=== PATIENT | female | born 1935 | race Caucasian/White ===

== ENCOUNTER 2017-02-27 22:53 | Emergency (ER) | payer OTHER, MEDICARE ==
[~2017-02-27] VITALS: Ht 160 cm; Wt 47.2 kg
[~2017-02-27 22:53] MED LIST: ASPI81TA2 PO; CARB1TAB13 PO; FAMO-129 PO; FERR-57 PO; FOLI-43 PO; LIP10 PO; METO25TA6; MULT PO; PRAM0.5T3 PO; RALO60TA PO; SENN1TAB5 PO; SINEMET PO; carbidopa-levodopa
[2017-02-27 22:59] VITALS: PULSE 76; RESP 20; TEMP 98.2; O2SAT 98
--- NOTE | 2017-02-27 22:59 | NUR ---
Patient to ER bed 3 to gown for evaluation. Side rails up. Report given to ELYSE Patiño
--- NOTE | 2017-02-27 23:00 | NUR ---
Patient arrived BLS s/p mechanical fall from shower. Patient states that she fell on her side hitting her right arm and flank. Patient denies any pain at this time. No shortness of breath. No other complaints/injuries per patient or as noted.
--- NOTE | 2017-02-27 23:23 | NUR ---
CAILIN Bueno at bedside.
[2017-02-27 23:53] LABS: BASOPHILS % (AUTO) 0.6 % (0.0-2.0); EOSINOPHILS # (AUTO) 0.3 K/uL (0.0-0.4); HEMATOCRIT 36.3 % (36-48); HEMOGLOBIN 11.9 g/dL (12.0-16.0); LYMPHOCYTES % (AUTO) 16.3 % (20.5-51.5); MEAN CORPUSCULAR HEMOGLOBIN 31 pg (27-31); MEAN CORPUSCULAR HGB CONC 33 % (32-36); MEAN CORPUSCULAR VOLUME 94 fL (79.0-98.0); MONOCYTES # (AUTO) 0.3 K/uL (0.0-1.0); MONOCYTES % (AUTO) 5.3 % (1.7-9.3); NEUTROPHILS # (AUTO) 4.7 K/uL (1.8-7.7); NEUTROPHILS % (AUTO) 73.8 % (40.0-70.0); PLATELET COUNT (AUTO) 201 K/uL (130-430); RED BLOOD CELL COUNT(AUTO) 3.86 MIL/uL (4.2-6.2); RED CELL DISTRIBUTION WIDTH 11.6 % (9.0-15.0); WHITE BLOOD COUNT (AUTO) 6.3 K/uL (4.8-10.8)
[2017-02-27 23:58] LABS: CALCIUM 8.8 mg/dL (8.4-11.0); CHLORIDE 106 mmol/L (98-107); CREATININE 1.05 mg/dL (0.55-1.30); GLUCOSE 102 mg/dL (70-99); POTASSIUM 4.2 mmol/L (3.5-5.1); SODIUM SERUM 138 mmol/L (136-145); UREA NITROGEN, BLOOD 22 mg/dL (8-21)
[2017-02-28] LABS: ANION GAP < 3 (5-15)
[2017-02-28 00:03] LABS: ALANINE AMINOTRANSFERASE 8 U/L (12-78); ALBUMIN 3.9 g/dL (3.4-4.8); ASPARTATE AMINOTRANSFERASE 19 U/L (10-37); CREATINE KINASE, TOTAL 115 U/L (26-192); TOTAL BILIRUBIN 0.3 mg/dL (0.0-1.0); TOTAL PROTEIN, SERUM 6.8 g/dL (6.4-8.3)
[2017-02-28 00:11] LABS: PROTHROMBIN TIME 10.6 SECS (9.5-12.5)
--- NOTE | 2017-02-28 01:27 | NUR ---
Patient to be transferred to [facility]. Patient or responsible libertarian has agreed to transfer and signed form. Patient belongings inventoried and will be sent with patient. Copy of nursing notes, lab reports, EKG, Physicians Orders and X-rays to be sent with patient. Report called to Arlin at receiving facility. [facility] has been called for transfer. ETA is [phone]
--- NOTE | 2017-02-28 01:30 | NUR ---
Note undone in EDM - 02/28/17 at 0300 by [email or web address] Patient given written and verbal discharge instructions and verbalizes understanding. ER discussed with patient the results and treatment provided. Patient in stable condition. ID arm band removed. Rx of Tylenol given. Patient educated on pain management and to follow up with PMD in 2-3 days. Pain Scale 0/10 Opportunity for questions provided and answered.
[2017-02-28] MEDS ORDERED: MORPHINE 4 MG/ML INJ. SYRINGE IVP ONE (01:45)
--- NOTE | 2017-02-28 01:50 | NUR ---
Patient given written and verbal discharge instructions and verbalizes understanding. ER MD discussed with patient the results and treatment provided. Patient in stable condition. ID arm band removed. Rx of Tylenol given. Patient educated on pain management and to follow up with PMD in 2-3 days. Pain Scale 0/10 Opportunity for questions provided and answered.
[2017-02-28 02:01] VITALS: BP 132/86; PULSE 76; RESP 20; TEMP 98.2; O2SAT 98
--- NOTE | 2017-02-28 09:28 | NUR ---
RECEIVED FINAL REPORT RE CHEST XRAYS, SPOKE WITH CAREGIVER MCKENZIE AT [facility], WILL FAX OVER RESULTS TO CHARGE NURSE TEOFILO CABALLERO
== END 2017-02-28 01:50 | disposition home or self-care (01) ==
LOC: SED 22:53
DX: S20.20XA Contusion of thorax, unspecified, initial encounter (principal); I10 Essential (primary) hypertension; Z85.3 Personal history of malignant neoplasm of breast; Z79.899 Other long term (current) drug therapy; W18.2XXA Fall in (into) shower or empty bathtub, initial encounter; Y93.89 Activity, other specified; Y92.091 Bathroom in other non-institutional residence as the place of occurrence of the external cause; Y99.8 Other external cause status
CPT/HCPCS: 36415; 71010; 80053; 82550-TC; 84484; 85025; 85610-TC; 85730-TC; 96372; 99285; J2270

== ENCOUNTER 2017-02-28 10:38 | Emergency (ER) | payer OTHER, MEDICARE ==
[~2017-02-28] VITALS: Ht 167.6 cm; Wt 52.2 kg
[2017-02-28 10:38] VITALS: BP_SYST 128
[2017-02-28 13:15] VITALS: BP_SYST 120
== END 2017-02-28 13:15 | disposition home or self-care (01) ==
LOC: SED 10:38
DX: S22.31XA Fracture of one rib, right side, initial encounter for closed fracture (principal); I10 Essential (primary) hypertension; Z85.3 Personal history of malignant neoplasm of breast; G20 Parkinson's disease; Z79.82 Long term (current) use of aspirin; W18.2XXA Fall in (into) shower or empty bathtub, initial encounter; Y93.89 Activity, other specified; Y92.091 Bathroom in other non-institutional residence as the place of occurrence of the external cause; Y99.9 Unspecified external cause status
CPT/HCPCS: 99283

== ENCOUNTER 2017-03-14 19:40 | Emergency (ER) | payer OTHER, MEDICARE ==
[~2017-03-14] VITALS: Ht 160 cm; Wt 49.9 kg
[2017-03-14 19:40] VITALS: BP 137/60; PULSE 82; RESP 18; TEMP 99.2; O2SAT 96
[2017-03-14] MEDS ORDERED: KETOROLAC TROMETHAMINE 30 MG VIAL IVP ONE (20:45)
[2017-03-14 21:01] LABS: BASOPHILS # (AUTO) 0.1 K/uL (0.0-0.2); BASOPHILS % (AUTO) 1.4 % (0.0-2.0); EOSINOPHILS # (AUTO) 0.3 K/uL (0.0-0.4); EOSINOPHILS % (AUTO) 3.5 % (0.0-4.0); HEMATOCRIT 32.3 % (36-48); HEMOGLOBIN 10.9 g/dL (12.0-16.0); LYMPHOCYTES # (AUTO) 0.9 K/uL (1.0-5.5); LYMPHOCYTES % (AUTO) 11.2 % (20.5-51.5); MEAN CORPUSCULAR HEMOGLOBIN 32 pg (27-31); MEAN CORPUSCULAR HGB CONC 34 % (32-36); MEAN CORPUSCULAR VOLUME 94 fL (79.0-98.0); MONOCYTES # (AUTO) 0.7 K/uL (0.0-1.0); MONOCYTES % (AUTO) 8.9 % (1.7-9.3); NEUTROPHILS # (AUTO) 6.3 K/uL (1.8-7.7); PLATELET COUNT (AUTO) 325 K/uL (130-430); RED BLOOD CELL COUNT(AUTO) 3.45 MIL/uL (4.2-6.2); RED CELL DISTRIBUTION WIDTH 11.7 % (9.0-15.0); WHITE BLOOD COUNT (AUTO) 8.3 K/uL (4.8-10.8)
[2017-03-14 21:02] LABS: ANION GAP 4 (5-15); CALCIUM 8.4 mg/dL (8.4-11.0); CHLORIDE 109 mmol/L (98-107); CREATININE 0.71 mg/dL (0.55-1.30); GLUCOSE 112 mg/dL (70-99); POTASSIUM 3.9 mmol/L (3.5-5.1); SODIUM SERUM 142 mmol/L (136-145); UREA NITROGEN, BLOOD 19 mg/dL (8-21)
[2017-03-14 21:06] LABS: PROTHROMBIN TIME 10.7 SECS (9.5-12.5)
[2017-03-14 21:07] LABS: ALANINE AMINOTRANSFERASE 11 U/L (12-78); ALBUMIN 3.5 g/dL (3.4-4.8); ASPARTATE AMINOTRANSFERASE 21 U/L (10-37); CREATINE KINASE, TOTAL 68 U/L (26-192); TOTAL BILIRUBIN 0.3 mg/dL (0.0-1.0); TOTAL PROTEIN, SERUM 6.5 g/dL (6.4-8.3)
[2017-03-14 23:55] VITALS: BP 127/52; PULSE 80; RESP 18; TEMP 98.9; O2SAT 96
== END 2017-03-14 23:55 | disposition home or self-care (01) ==
LOC: SED 19:40
DX: J18.9 Pneumonia, unspecified organism (principal); I10 Essential (primary) hypertension; Z85.3 Personal history of malignant neoplasm of breast; Z90.11 Acquired absence of right breast and nipple; Z79.899 Other long term (current) drug therapy
CPT/HCPCS: 36415; 71010; 80053; 82550; 83880; 84484; 85025; 85610; 85730; 93005; 96374; 99285; J1885

== ENCOUNTER 2017-03-19 21:03 | Inpatient (IN) | payer OTHER, MEDICARE ==
[~2017-03-19] VITALS: Ht 160 cm; Wt 53.2 kg
[2017-03-19 21:03] VITALS: BP_SYST 155
--- NOTE | 2017-03-19 21:03 | NUR ---
Patient to ER bed 2 to gown for evaluation. Side rails up. Report given to ELYSE Rico.
--- NOTE | 2017-03-19 21:03 | NUR ---
ER Dr. CRAFT at bedside examining patient.
--- NOTE | 2017-03-19 21:10 | NUR ---
PT C/O RT ARM PAIN 04/30, NON-RADIATING, STATES IT STARTED HURTING MORE TODAY. A/OX3, FORGETFULL, AFEBRILE. NO SOB OR DISTRESS, NO N/V/D. SAFETY PRECAUTIONS IN PLACE, WILL CONTINUE TO MONITOR.
[2017-03-19] MEDS ORDERED: KETOROLAC TROMETHAMINE 30 MG VIAL IVP ONE (21:15)
[2017-03-19] MEDS ORDERED: NACL 0.9% 1,000 ML IV ONE (21:15)
[2017-03-19 21:29] LABS: BASOPHILS # (AUTO) 0.1 K/uL (0.0-0.2); BASOPHILS % (AUTO) 1.2 % (0.0-2.0); EOSINOPHILS # (AUTO) 0.5 K/uL (0.0-0.4); EOSINOPHILS % (AUTO) 9.4 % (0.0-4.0); HEMATOCRIT 36.6 % (36-48); HEMOGLOBIN 12.2 g/dL (12.0-16.0); LYMPHOCYTES % (AUTO) 18.5 % (20.5-51.5); MEAN CORPUSCULAR HEMOGLOBIN 31 pg (27-31); MEAN CORPUSCULAR HGB CONC 33 % (32-36); MEAN CORPUSCULAR VOLUME 94 fL (79.0-98.0); MONOCYTES # (AUTO) 0.5 K/uL (0.0-1.0); MONOCYTES % (AUTO) 9.5 % (1.7-9.3); NEUTROPHILS # (AUTO) 3.4 K/uL (1.8-7.7); NEUTROPHILS % (AUTO) 61.4 % (40.0-70.0); PLATELET COUNT (AUTO) 383 K/uL (130-430); RED BLOOD CELL COUNT(AUTO) 3.92 MIL/uL (4.2-6.2); RED CELL DISTRIBUTION WIDTH 11.8 % (9.0-15.0); WHITE BLOOD COUNT (AUTO) 5.5 K/uL (4.8-10.8)
[2017-03-19 21:37] LABS: ANION GAP 7 (5-15); CALCIUM 9.1 mg/dL (8.4-11.0); CHLORIDE 104 mmol/L (98-107); CREATININE 0.84 mg/dL (0.55-1.30); GLUCOSE 107 mg/dL (70-99); POTASSIUM 4.2 mmol/L (3.5-5.1); SODIUM SERUM 140 mmol/L (136-145); UREA NITROGEN, BLOOD 24 mg/dL (8-21)
[2017-03-19 21:41] LABS: PROTHROMBIN TIME 10.5 SECS (9.5-12.5)
[2017-03-19 21:42] LABS: ALANINE AMINOTRANSFERASE 13 U/L (12-78); ALBUMIN 4.2 g/dL (3.4-4.8); ASPARTATE AMINOTRANSFERASE 32 U/L (10-37); TOTAL BILIRUBIN 0.3 mg/dL (0.0-1.0); TOTAL PROTEIN, SERUM 7.9 g/dL (6.4-8.3)
[2017-03-19] MEDS ORDERED: PIPERACILLIN/TAZO 3.375 GM in NS 50 ML IV ONE (21:45)
[2017-03-19] MEDS ORDERED: METO25TA3 PO (21:46)
[2017-03-19] MEDS ORDERED: DOCU-144 PO (21:46)
[2017-03-19] MEDS ORDERED: FLUT60LO3 TP (21:46)
[2017-03-19] MEDS ORDERED: NAPR220C15 PO (21:46)
[2017-03-19] MEDS ORDERED: ACET325T53 PO (21:46)
[2017-03-19] MEDS ORDERED: CARB-61 PO (21:46)
[2017-03-19 22:22] LABS: BILIRUBIN,URINE NEGATIVE (NEGATIVE); BLOOD, URINE NEGATIVE (NEGATIVE); CLARITY/URINE CLEAR (CLEAR); COLOR,URINE YELLOW (YELLOW); GLUCOSE,URINE NEGATIVE (NEGATIVE); KETONES,URINE NEGATIVE (NEGATIVE); LEUKOCYTE ESTERASE ,URINE NEGATIVE (NEGATIVE); NITRITE, URINE NEGATIVE (NEGATIVE); PROTEIN URINE NEGATIVE (NEGATIVE); UROBILINOGEN,URINE 0.2 (0.2-1.0)
[2017-03-19] MEDS ORDERED: PIPERACILLIN/TAZOBACTAM 3.375 GM/VIAL (ZOSYN) IV ONE (22:26)
[2017-03-19 23:44] VITALS: BP_SYST 150
--- NOTE | 2017-03-19 23:44 | NUR ---
Admission Note Received patient from ER with diagnosis of Pneumonia. Initial Plan of Care discussed-patient verbalized understanding. Family at bedside. Oriented to room, call light, pain management and safety.
--- NOTE | 2017-03-19 23:44 | NUR ---
Patient will be admitted to care of DR. BETTS. Admitted to TELEMETRY unit. Will go to room 117A. IV SITE ON LT AC 20G, INTACT AND PATENT. Belongings list completed. Summary report printed. Report given at bedside TO NURSE ELYSE MARQUEZ.
[2017-03-20] MEDS ORDERED: CARBIDOPA PO SCH
[2017-03-20] MEDS ORDERED: FLUTICASONE PROPIONATE TP SCH
[2017-03-20] MEDS ORDERED: LEVODOPA PO SCH
[2017-03-20] MEDS ORDERED: NON-FORMULARY MEDICATION (Naproxen Sodium (Aleve) 220 MG) PO PRN
[2017-03-20] MEDS ORDERED: ALBUTEROL SULFATE 0.083% 2.5 MG/3 ML VIAL.NEB INH PRN
[2017-03-20] MEDS ORDERED: ENTACAPONE PO SCH
[2017-03-20 00:18] VITALS: BP_SYST 155
[2017-03-20] MEDS ORDERED: PIPERACILLIN/TAZOBACTAM 3.375 GM/VIAL (ZOSYN) IV ONE (00:40)
[2017-03-20] MEDS: NACL 0.9% 1,000 ML IV SCH ×2 (01:06→17:34)
[2017-03-20 04:45] VITALS: BP_SYST 142
[2017-03-20] MEDS: PIPERACILLIN/TAZO 3.375/DEX-IS 50 ML IV SCH ×5 (05:58→23:32)
[2017-03-20 06:14] LABS: ANION GAP 4 (5-15); CALCIUM 8.3 mg/dL (8.4-11.0); CHLORIDE 108 mmol/L (98-107); CREATININE 0.71 mg/dL (0.55-1.30); GLUCOSE 90 mg/dL (70-99); POTASSIUM 3.7 mmol/L (3.5-5.1); SODIUM SERUM 140 mmol/L (136-145); UREA NITROGEN, BLOOD 20 mg/dL (8-21)
[2017-03-20 06:24] LABS: BASOPHILS # (AUTO) 0.1 K/uL (0.0-0.2); EOSINOPHILS # (AUTO) 0.5 K/uL (0.0-0.4); EOSINOPHILS % (AUTO) 10.6 % (0.0-4.0); HEMATOCRIT 32.8 % (36-48); HEMOGLOBIN 10.9 g/dL (12.0-16.0); LYMPHOCYTES # (AUTO) 0.8 K/uL (1.0-5.5); LYMPHOCYTES % (AUTO) 15.6 % (20.5-51.5); MEAN CORPUSCULAR HEMOGLOBIN 31 pg (27-31); MEAN CORPUSCULAR HGB CONC 33 % (32-36); MEAN CORPUSCULAR VOLUME 94 fL (79.0-98.0); MONOCYTES # (AUTO) 0.5 K/uL (0.0-1.0); MONOCYTES % (AUTO) 9.1 % (1.7-9.3); NEUTROPHILS # (AUTO) 3.3 K/uL (1.8-7.7); NEUTROPHILS % (AUTO) 63.7 % (40.0-70.0); PLATELET COUNT (AUTO) 348 K/uL (130-430); RED CELL DISTRIBUTION WIDTH 11.9 % (9.0-15.0); WHITE BLOOD COUNT (AUTO) 5.2 K/uL (4.8-10.8)
[2017-03-20 08:00] VITALS: BP_SYST 155
--- NOTE | 2017-03-20 08:00 | NUR ---
RN OPENING NOTE Patient lying on bed alert oriented X4, patient denied pain or discomfort, patient was assessed and vital signs show blood pressure of 155/78 patient will be given her blood pressure medication. will follow up
[2017-03-20] MEDS: DOCUSATE SODIUM 100 MG CAPSULE PO SCH ×2 (09:59→20:40)
[2017-03-20] MEDS: ATORVASTATIN 10 MG TABLET PO SCH (10:00)
--- NOTE | 2017-03-20 10:00 | NUR ---
RN Rounds patient lying on bed was given her bed mcneil, patient denies pain or discomfort. will follow up
[2017-03-20] MEDS: MULTIVITAMINS TAB 1 TABLET PO SCH (10:01)
[2017-03-20] MEDS: ASPIRIN 81 MG TAB.CHEW PO SCH (10:01)
[2017-03-20] MEDS: LACTOBACILLUS RHAMNOSUS GG 1 CAP CAPSULE PO SCH ×2 (10:01→20:40)
[2017-03-20] MEDS: FOLIC ACID 1 MG TABLET PO SCH (10:01)
--- NOTE | 2017-03-20 10:01 | NUR ---
Nutrition Update Len Scale 15 noted. Pt admitted for pneumonia. Diet: 2 gm Na BMI: 20.8 kg/m2 RD to follow per nutrition care standards.
[2017-03-20] MEDS: METOPROLOL SUCCINATE 25 MG TAB.SR.24H (TOPROL XL) PO SCH (10:02)
[2017-03-20] MEDS: FERROUS SULFATE 325 MG TABLET.DR PO SCH (10:02)
[2017-03-20] MEDS: RALOXIFENE HCL 60 MG TABLET (EVISTA) PO SCH (10:08)
[2017-03-20 12:00] VITALS: BP_SYST 146
--- NOTE | 2017-03-20 12:00 | NUR ---
RN Rounds Patient lying on bed was ambulated by PT, tolerated. weak gait patient was given her IV antibiotic will follow up
--- NOTE | 2017-03-20 14:00 | NUR ---
RN Rounds patient IV saline lock in the left AC was not working, showing high resistance , and New saline lock was inserted on the left forearm, patient tolerated it well, continue to give the bed mcneil for the patient for voiding urine will record the output
--- NOTE | 2017-03-20 16:00 | NUR ---
RN Rounds patient lying on bed denies pain or discomfort, patient was helped with her eating dinner. changed her bed mcneil. will follow up
[2017-03-20 16:51] VITALS: BP_SYST 151
--- NOTE | 2017-03-20 18:00 | NUR ---
RN closing notes patient lying on bed denies pain or discomfort. was repositioned in bed, and her karyn was changed with new dry one, will give report to next shirt.
--- NOTE | 2017-03-20 19:25 | NUR ---
INITIAL NOTES; -Pt is a/ox2, resting in bed. Pt denies any pain,sob,or any acute distress. IV sites of left f/a #22 patent,no s/s any infiltration noted. IVF NS @ 75ml/hr. Lung sounds clear throughout all lobes. Bs present,abdomen soft & nondistended. Rojelio pedis pulses normal and present. Discussed poc, procedure, all safety measures with pt, and instructed pt not to get out bed to use call light for assistance, pt verbalized understanding. Fall precaution in place. All safety measures in place. Bed locked,low position,side rails x3, bed alarm in place. Place near Nurses' station. Call light w/in reach. Continue to monitor pt
[2017-03-20] MEDS: ACETAMINOPHEN 325 MG TABLET PO PRN (20:41)
[2017-03-20] MEDS: CARBIDOPA/LEVODOPA 25/100 MG TABLET PO SCH (22:05)
[2017-03-20] MEDS: PRAMIPEXOLE DI-HCL 0.25 MG TABLET PO SCH (22:05)
--- NOTE | 2017-03-20 22:09 | NUR ---
ROUNDS; -Pt is resting in bed. Pt denies any pain,sob,or any acute distress. IV sites of left f/a #22 patent,no s/s any infiltration noted. IVF NS @ 75ml/hr. . Fall precaution in place. All safety measures in place. Bed locked,low position,side rails x3, bed alarm in place. Place near Nurses' station. Call light w/in reach. Continue to monitor pt
--- NOTE | 2017-03-20 23:34 | NUR ---
ROUNDS; BEDPAN WITH ASSISTANCE -Assisting with bedpan. Instructed to use call light when ready to be off bedpan, pt verbalized understanding. Pt denies any pain,sob,or any acute distress. IV sites of left f/a #22 patent,no s/s any infiltration noted. Infusing Zosyn ivpb. IVF NS @ 75ml/hr. Fall precaution in place. All safety measures in place. Bed locked,low position,side rails x3, bed alarm in place. Place near Nurses' station. Call light w/in reach. Continue to monitor pt
--- NOTE | 2017-03-20 23:45 | NUR ---
SANGEETA TOOK PT OFF BEDPAN
--- NOTE | 2017-03-20 23:50 | NUR ---
PAGED DR. WILLIAMSON REGARDING ELEVATED BP 163/98. -waiting for MD to return callback.
[2017-03-21 00:06] VITALS: BP_SYST 160
--- NOTE | 2017-03-21 02:15 | NUR ---
ROUNDS -Pt is resting. No s/s any acute distress noted. IV sites of left f/a #22 patent,no s/s any infiltration noted. Fall precaution in place. All safety measures in place. Bed locked,low position,side rails x3, bed alarm in place. Place near Nurses' station. Call light w/in reach. Continue to monitor pt
--- NOTE | 2017-03-21 03:40 | NUR ---
ROUNDS; PAGED DR. WILLIAMSON REGARDING ELEVATED ZZ=557/83. -Now, waiting for MD to return callback. -Pt is resting. No s/s any acute distress noted. IV sites of left f/a #22 patent,no s/s any infiltration noted. Fall precaution in place. All safety measures in place. Bed locked,low position,side rails x3, bed alarm in place. Place near Nurses' station. Call light w/in reach. Continue to monitor pt
[2017-03-21 04:15] VITALS: BP_SYST 173
--- NOTE | 2017-03-21 04:20 | NUR ---
ELEVATED RQ=495/83 -Notified Dr. Ball regarding elevated bp 173/83. Give Clonidine 0.1mg po q 6 hr prn sbp >160.
[2017-03-21] MEDS ORDERED: cloNIDine HCL 0.1 MG TABLET PO PRN (04:30)
[2017-03-21] MEDS: NACL 0.9% 1,000 ML IV SCH ×2 (04:38→11:41)
[2017-03-21] MEDS: ACETAMINOPHEN 325 MG TABLET PO PRN (04:38)
--- NOTE | 2017-03-21 04:39 | NUR ---
ELEVATED BP Gave Clonidine 0.1mg po for elevated bp 173/83. Will recheck w/in an hour. Continue to monitor pt. Addendum: 03/21/17 at 0620 by Pedro Avila RN LATE ENTRY- RETOOK W/IN AN HOUR AFTERWARD,QN=340/76.
[2017-03-21] MEDS: PRAMIPEXOLE DI-HCL 0.25 MG TABLET PO SCH ×5 (05:13→21:16)
[2017-03-21] MEDS: PIPERACILLIN/TAZO 3.375/DEX-IS 50 ML IV SCH ×4 (05:13→23:15)
[2017-03-21] MEDS: CARBIDOPA/LEVODOPA 25/100 MG TABLET PO SCH ×7 (05:13→21:16)
--- NOTE | 2017-03-21 05:13 | NUR ---
NOTES; -TIARA gave Mirapex, Sinemet, Zosyn IVPB.
--- NOTE | 2017-03-21 07:35 | NUR ---
CLOSING NOTES; -Pt is resting in bed. No s/s any pain,sob,or any acute distress noted. IV sites of left f/a #22 patent,no s/s any infiltration noted. IVF NS @ 75ml/hr. Fall precaution in place. All safety measures in place. Bed locked,low position,side rails x3, bed alarm in place. Place near Nurses' station. Call light w/in reach. Endorsed to Jim at bedside to continue care.
[2017-03-21 08:14] VITALS: BP_SYST 140
--- NOTE | 2017-03-21 08:16 | NUR ---
INITIAL NOTE PT LAYING IN BED, RESTING, EASY TO AROUSE, A/O X2, EPISODES OF CONFUSION, IV TO LFA PATENT, INFUSING NS AT 75, NO S/S OF INFILTRATION NOTED, VSS, NO SOB, DISTRESS OR PAIN NOTED, PLAN OF CARE DISCUSSED, PT VERBALIZED UNDERSTANDING, PT REORIENTED TO USE OF CALL LIGHT AND IT IS PLACED [id number] REACH, SIDE RAILS UP X3, BED ALARM ON AND BED IN LOW POSITION AND LOCKED, WILL FOLLOW UP
--- NOTE | 2017-03-21 09:00 | NUR ---
PATIENT UP WITH PHYSICAL THERAPY, AMBULATED WITH WALKER, UNSTEADY GAIT NOTED, PT PLACED IN BEDSIDE CHAIR PER PATIENT REQUEST, CALL LIGHT PLACED WITHIN REACH, WILL FOLLOW UP
[2017-03-21] MEDS: DOCUSATE SODIUM 100 MG CAPSULE PO SCH ×2 (09:06→21:16)
[2017-03-21] MEDS: MULTIVITAMINS TAB 1 TABLET PO SCH (09:06)
[2017-03-21] MEDS: LACTOBACILLUS RHAMNOSUS GG 1 CAP CAPSULE PO SCH ×2 (09:06→21:16)
[2017-03-21] MEDS: ASPIRIN 81 MG TAB.CHEW PO SCH (09:06)
[2017-03-21] MEDS: FOLIC ACID 1 MG TABLET PO SCH (09:06)
[2017-03-21] MEDS: ATORVASTATIN 10 MG TABLET PO SCH (09:07)
[2017-03-21] MEDS: METOPROLOL SUCCINATE 25 MG TAB.SR.24H (TOPROL XL) PO SCH (09:07)
[2017-03-21] MEDS: FERROUS SULFATE 325 MG TABLET.DR PO SCH (09:08)
[2017-03-21] MEDS: RALOXIFENE HCL 60 MG TABLET (EVISTA) PO SCH (09:08)
--- NOTE | 2017-03-21 11:30 | NUR ---
ROUNDS PT SITTING UP IN BED, AWAKE AND ALERT, CONFUSED, IV ANTIBIOTIC HANGED, IV SITE PATENT AND INTACT, NO S/S OF INFILTRATION NOTED, CALL LIGHT PLACED WITHIN REACH, SAFETY MEASURES IN PL;EMERSON, BED ALARM ON, WILL CONTINUE TO MONITOR
--- NOTE | 2017-03-21 11:45 | NUR ---
PHYSICAL THERAPY CO-SIGN The Physical Therapy Progress Notes documented by Submarine Element Coordinator have been reviewed. Reviewed/Co-Signed by: Torri Moore, PT Documentation Done by: Zhang Rizvi PTA I concur with the documentation of this SCRATCH POLISHER. Plan: continue PT as per the recommended plan of care if she remains here. Addendum: 03/21/17 at 1236 by Torri Moore PT Amended: Links added.
[2017-03-21 12:00] VITALS: BP_SYST 130
--- NOTE | 2017-03-21 12:14 | NUR ---
DR WILLIAMSON PAGED PER PHARMACY REQUEST TO UPDATE ON PATIENT NOT RECEIVING STALERO ONE OF HER [facility]ICATION PH[facility] DOES NOT CARR[facility], PT MADE AWARE SHE DOES NOT HAVE THE MEDICATION ON HER, AWAITING CALL BACK.
--- NOTE | 2017-03-21 14:00 | NUR ---
ROUNDS PT ASSISTED TO RESTROOM, WITH ASSIST, UNSTEADY, PATIENT VOIDED, CLEANED AND REPOSITION IN BED WITH PILLOW SUPPORT, COMMONLY USED ITEMS PLACED WITHIN REACH, SAFETY MEASURES IN PLACE, CALL LIGHT WITHIN REACH, WILL CONTINUE TO MONITOR
--- NOTE | 2017-03-21 16:15 | NUR ---
ROUNDS PT SITTING UP IN BED, AWAKE, ALERT, PT APPEARS DISORIENTED, NO S/S OF SOB, DISTRESS OR PAIN, VSS, NEEDS ATTENDED TO, PT ASSISTED IN REPOSITIONING WITH PILLOW SUPPORT, SAFETY MEASURES IN PLACE, CALL LIGHT WITHIN REACH, WILL CONTINUE TO MONITOR
[2017-03-21 16:53] VITALS: BP_SYST 116
[2017-03-21] MEDS: COMTAN 200 MG TAB PO SCH ×2 (17:38→21:16)
--- NOTE | 2017-03-21 18:35 | NUR ---
CLOSING NOTE PT AWAKE, ALERT, CONFUSED, PT MOVED TO ROOM CLOSER TO NURSING STATION FOR SAFETY, PT VERBALIZED UNDERSTANDING FOR ROOM CHANGE, ALL BELONGINGS TRANSFERRED WITH PATIENT, PT SITUATED IN NEW ROOM, CALL LIGHT PLACED WITHIN REACH, IV TO LFA INFUSING, NO S/S OF INFILTRATION NOTED, ALL NEEDS ATTENDED TO THROUGH OUT SHIFT, SAFETY MEASURES MAINTAINED, BED IN LOW POSITION AND LOCKED, WILL GIVE REPORT TO FOLLOWING SHIFT.
--- NOTE | 2017-03-21 19:56 | NUR ---
PM ASSESSMENT PT. A/OX2, ORIENTED TO SURROUNDINGS, VITAL SIGNS STABLE, NO DISTRESS NOTED, DENIES PAIN, ASSISTED PT. TO AMBULATE TO THE BATHROOM, NOTED WITH SLOW, UNSTEADY GAIT. UPDATED WITH PLAN OF CARE, ENCOURAGED PT. TO USE CALL LIGHT FOR ASSISTANCE, BED ALARM ON, NON SKID SOCKS IN PLACE, BED IN LOWEST POSITION. CALL LIGHT WITHIN REACH.
[2017-03-21 20:00] VITALS: BP_SYST 102
--- NOTE | 2017-03-21 21:30 | NUR ---
RN ROUNDS PT. RESTING QUIETLY, VITAL SIGNS STABLE, NO DISTRESS NOTED, DENIES PAIN, CALL LIGHT WITHIN REACH, BED IN LOWEST POSITION, BED ALARM ON.
--- NOTE | 2017-03-21 23:29 | NUR ---
RN ROUNDS PT. IS SLEEPING, NO DISTRESS NOTED, NO S/S OF PAIN OR DISCOMFORT, CALL LIGHT WITHIN REACH, BED IN LOWEST POSITION, BED ALARM ON.
[2017-03-22] VITALS (8 sets, daily range): BP systolic 95–141
--- NOTE | 2017-03-22 01:28 | NUR ---
RN ROUNDS PT. IS SLEEPING, NO DISTRESS NOTED, NO S/S OF PAIN OR DISCOMFORT, CALL LIGHT WITHIN REACH, BED IN LOWEST POSITION, BED ALARM ON.
--- NOTE | 2017-03-22 02:02 | NUR ---
AMBULATION ASSISTED PT. TO AMBULATE TO THE BATHROOM, NOTED WITH SLOW, STEADY GAIT, PT. VOIDED LARGE AMOUNT OF CLEAR, YELLOW URINE, ASSISTED SAFELY BACK INTO BED, BED IN LOWEST POSITION, BED ALARM ON.
--- NOTE | 2017-03-22 03:45 | NUR ---
INCONTINENT PT. STOOD UP, ATTEMPTED TO AMBULATE TO THE BATHROOM, BUT IS INCONTINENT OF URINE AT THIS TIME. ERICH CARE DONE, NEW LINEN APPLIED, NEW GOWN APPLIED. REPOSITIONED IN BED, BED ALARM ON, BED IN LOWEST POSITION.
[2017-03-22] MEDS: NACL 0.9% 1,000 ML IV SCH ×3 (05:20→21:50)
[2017-03-22] MEDS: PIPERACILLIN/TAZO 3.375/DEX-IS 50 ML IV SCH ×4 (05:45→23:20)
[2017-03-22] MEDS: CARBIDOPA/LEVODOPA 25/100 MG TABLET PO SCH ×10 (05:45→21:42)
[2017-03-22] MEDS: PRAMIPEXOLE DI-HCL 0.25 MG TABLET PO SCH ×5 (05:46→21:41)
[2017-03-22] MEDS: COMTAN 200 MG TAB PO SCH ×5 (05:46→21:43)
--- NOTE | 2017-03-22 08:18 | NUR ---
OPENING NOTE: RECEIVED REPORT FROM NIGHT NURSE. PATIENT IS RESTING COMFORTABLY IN BED. NO S/S OF DISTRESS OR SOB. PATIENT IS AWAKE AND ALERT. VITAL SIGNS WNL, ASSESSMENT COMPLETE. IV IS PATENT AND INFUSING. PATIENT IS EATING BREAKFAST, NO ASSIST NEEDED. CALL LIGHT IN REACH, BED IN LOWEST POSITION, AND WILL CONTINUE TO MONITOR.
[2017-03-22] MEDS: ATORVASTATIN 10 MG TABLET PO SCH (09:48)
[2017-03-22] MEDS: FOLIC ACID 1 MG TABLET PO SCH (09:48)
[2017-03-22] MEDS: FERROUS SULFATE 325 MG TABLET.DR PO SCH (09:48)
[2017-03-22] MEDS: LACTOBACILLUS RHAMNOSUS GG 1 CAP CAPSULE PO SCH ×2 (09:48→21:41)
[2017-03-22] MEDS: ASPIRIN 81 MG TAB.CHEW PO SCH (09:48)
[2017-03-22] MEDS: DOCUSATE SODIUM 100 MG CAPSULE PO SCH ×2 (09:48→21:42)
[2017-03-22] MEDS: FAMOTIDINE 20 MG TABLET PO SCH (09:48)
[2017-03-22] MEDS: MULTIVITAMINS TAB 1 TABLET PO SCH (09:49)
[2017-03-22] MEDS: METOPROLOL SUCCINATE 25 MG TAB.SR.24H (TOPROL XL) PO SCH (09:50)
--- NOTE | 2017-03-22 10:15 | NUR ---
NOTE: PATIENT IS WALKING WITH PHYSICAL THERAPY. WALKING TO NURSING STATION, LESS SHUFFLING NOTED. PATIENT IS AWAKE AND ALERT, WITH SOME CONFUSING. CALL LIGHT IN REACH, BED IN LOWEST POSITION, AND WILL CONTINUE TO MONITOR.
[2017-03-22] MEDS: RALOXIFENE HCL 60 MG TABLET (EVISTA) PO SCH (10:44)
--- NOTE | 2017-03-22 10:45 | NUR ---
PHYSICAL THERAPY CO-SIGN The Physical Therapy Progress Notes documented by Residential Manager have been reviewed. Reviewed/Co-Signed by: Torri Moore, PT Documentation Done by: Zhang Rizvi PTA I concur with the documentation of this TAKE UP OPERATOR. Plan: continue PT as per plan of care. Addendum: 03/22/17 at 1151 by Torri Moore PT Amended: Links added.
--- NOTE | 2017-03-22 12:00 | NUR ---
NOTE: PATIENT IS RESTING COMFORTABLY IN BED. NO S/S OF DISTRESS OR SOB. PATIENT IS AWAKE AND ALERT. CALL LIGHT IN REACH, BED IN LOWEST POSITION, AND WILL CONTINUE TO MONITOR.
--- NOTE | 2017-03-22 14:00 | NUR ---
NOTE: PATIENT IS RESTING COMFORTABLY IN BED. NO S/S OF DISTRESS OR SOB. PATIENT WAS ASSISTED TO THE BATHROOM, STEADY GAIT OBSERVED BUT PATIENT NEEDS ASSIST. NO OTHER NEEDS AT THE MOMENT. CALL LIGHT IN REACH, BED IN LOWEST POSITION, AND WILL CONTINUE TO MONITOR.
--- NOTE | 2017-03-22 16:16 | NUR ---
NOTE: PATIENT IS RESTING COMFORTABLY IN BED. NO S/S OF DISTRESS OR SOB. PATIENT IS AWAKE BUT CONFUSED. CALL LIGHT IN ON, BED ALARM IS PLACED, BED IN LOWEST POSITION, AND WILL CONTINUE TO MONITOR.
--- NOTE | 2017-03-22 16:53 | NUR ---
DISCHARGE PLANNING DC Planning order for [facility] evaluation. Faxed referral to [facility] Ext:[phone] requesting to evaluate patient for short term placement. Will follow up.
--- NOTE | 2017-03-22 18:10 | NUR ---
CLOSING NOTE: PATIENT IS RESTING COMFORTABLY IN BED. NO S/S OF DISTRESS OR SOB. PATIENT IS AWAKE BUT CONFUSED. IV IS PATENT AND INFUSING. PATIENT IS CURRENTLY EATING DINNER. ALL NEEDS ADDRESSED AND MET DURING SHIFT. CALL LIGHT IN REACH, BED IN LOWEST POSITION, BED ALARM IS ON, AND WILL GIVE REPORT TO NIGHT NURSE.
--- NOTE | 2017-03-22 20:00 | NUR ---
NOTES; SEEN PT IN BED. A/A/O X2 WITH PERIOD OF CONFUSION. ORIENTED PT TO DATE, PLACE, TIME, AND SURROUNDING. ABLE TO MAKE NEEDS KNOWN. NO APPARENT DISTRESS NOTED. VITAL SIGNS STABLE, AFEBRILE. ORDERED IVF INFUSING WELL ON THE LEFT FOREARM, GAUGE 22, PATENT. NO SIGNS OF INFECTION NOTED ON IV SITE. HAND TREMORS NOTED. PT HAS HX OF PARKINSON DISEASE. SKIN INTACT. DENIES ANY PAIN AT THIS TIME. BED LOCKED AND IN LOW POSITION, BED ALARM ON. SIDE RAILS UP X3, ROOM CLOSE TO NURSES STATION. CALL LIGHT WITHIN REACH. WILL CONTINUE TO MONITOR.
--- NOTE | 2017-03-22 21:51 | NUR ---
NOTES; SCHEDULED PO MEDICATION, ADMINISTERED. PT TOLERATED MEDS WELL.
--- NOTE | 2017-03-23 00:05 | NUR ---
NOTES; PT APPEARED TO BE SLEEPING IN BED, EYES CLOSED. RESPIRATION EVEN AND UNLABORED. SAFETY MEASURES IN PROGRESS.
--- NOTE | 2017-03-23 02:35 | NUR ---
NOTES; PT ASSISTED TO THE BATH ROOM WITH NURSE ASSISTANCE. PT VOIDED FREELY. ASSISTED BACK TO BED. GAIT UNSTEADY. SAFETY MEASURES IN PROGRESS. CALL LIGHT WITH REACH.
[2017-03-23 03:56] VITALS: BP_SYST 131
--- NOTE | 2017-03-23 04:30 | NUR ---
NOTES; PT APPEARED TO BE SLEEPING IN BED, EYES CLOSED. RESPIRATION EVEN AND UNLABORED. SAFETY MEASURES IN PROGRESS.
[2017-03-23] MEDS: PIPERACILLIN/TAZO 3.375/DEX-IS 50 ML IV SCH ×4 (05:37→23:44)
[2017-03-23] MEDS: CARBIDOPA/LEVODOPA 25/100 MG TABLET PO SCH ×10 (06:40→23:44)
[2017-03-23] MEDS: PRAMIPEXOLE DI-HCL 0.25 MG TABLET PO SCH ×5 (06:42→21:11)
[2017-03-23] MEDS: COMTAN 200 MG TAB PO SCH ×5 (06:42→21:10)
--- NOTE | 2017-03-23 06:45 | NUR ---
NOTES; SCHEDULED PO MEDICATION ADMINISTERED. PT TOLERATED MEDS. DENIES ANY PAIN AT THIS TIME. ALL NEEDS ATTENDED. SAFETY MEASURES IN PROGRESS.
--- NOTE | 2017-03-23 07:45 | NUR ---
AM ROUNDS Pt A/OX2, DENIES PAIN OR SOB AT THIS TIME..NO WHEEZING NOTED...IVF INFUSING WELL TO LFA..BED ALARM ACTIVATED..CALL LIGHT/PHONE W/IN REACH...WILL CONT TO MONITOR
--- NOTE | 2017-03-23 08:52 | NUR ---
PT SITTING UP IN BED EATING BREAKFAST
[2017-03-23] MEDS: METOPROLOL SUCCINATE 25 MG TAB.SR.24H (TOPROL XL) PO SCH (09:00)
[2017-03-23] MEDS: DOCUSATE SODIUM 100 MG CAPSULE PO SCH ×2 (09:15→21:10)
[2017-03-23] MEDS: ATORVASTATIN 10 MG TABLET PO SCH (09:15)
[2017-03-23] MEDS: ASPIRIN 81 MG TAB.CHEW PO SCH (09:16)
[2017-03-23] MEDS: FERROUS SULFATE 325 MG TABLET.DR PO SCH (09:17)
[2017-03-23] MEDS: MULTIVITAMINS TAB 1 TABLET PO SCH (09:17)
[2017-03-23] MEDS: FAMOTIDINE 20 MG TABLET PO SCH (09:17)
[2017-03-23] MEDS: FOLIC ACID 1 MG TABLET PO SCH (09:17)
[2017-03-23] MEDS: RALOXIFENE HCL 60 MG TABLET (EVISTA) PO SCH (09:18)
[2017-03-23] MEDS: LACTOBACILLUS RHAMNOSUS GG 1 CAP CAPSULE PO SCH ×2 (09:18→21:11)
--- NOTE | 2017-03-23 09:50 | NUR ---
PT C/O 3/10 CHEST PAIN THAT RADIATES TO BACK WHILE AMBULATING W/P.T. PT RETURNED TO ROOM. THERAPIST SAT PT IN CHAIR. BP 104/43, 74. PT STATED THAT PAIN DECREASED "A LITTLE" AFTER SITTING DOWN...DR WILLIAMSON WILL BE PAGED
--- NOTE | 2017-03-23 10:19 | NUR ---
2ND PAGE TO DR WILLIAMSON. TO INFORM OF PTS CHEST PAIN
--- NOTE | 2017-03-23 10:20 | NUR ---
PT STILL CONTINUES TO HAVE CHEST PAIN 2-3. PAIN DID NOT INCREASE BUT ALSO HAS NOT SUBSIDED. PAIN REMAINS THE SAME. PT ALERT, DENIES SOB, SHOULDER PAIN, JAW PAIN, OR THAT PAIN RADIATES DOWN ANY ARM...WILL CONT TO MONITOR
--- NOTE | 2017-03-23 10:52 | NUR ---
3RD CALL FOR DR WILLIAMSON SPOKE WITH DR WILLIAMSON...ORDERS GIVEN AND ENTERED
[2017-03-23] MEDS ORDERED: NITROGLYCERIN 0.4 MG TAB.SUBL SL PRN (11:00)
[2017-03-23 11:05] VITALS: BP_SYST 104
[2017-03-23 11:56] LABS: CREATINE KINASE, TOTAL 125 U/L (26-192)
--- NOTE | 2017-03-23 12:40 | NUR ---
PT SITTING UP IN BED EATING LUNCH PT COMFORTABLE..CHEST PAIN SUBSIDED...WILL CONT TO MONITOR
--- NOTE | 2017-03-23 14:55 | NUR ---
PHYSICAL THERAPY CO-SIGN The Physical Therapy Progress Notes documented by Film Waxer have been reviewed. I CONCUR W/ANSWERING SERVICE AGENT NOTE; TO CONT W/POC, VITALS TO BE MONITORED DURING TX Reviewed/Co-Signed by: Charlene Good PT Documentation Done by: AURE MARTINEZ ANSWERING SERVICE AGENT Addendum: 03/23/17 at 1456 by Charlene Good PT Amended: Links added.
--- NOTE | 2017-03-23 15:22 | NUR ---
ASSISTED PT TO RESTROOM PT HAS UNSTEADY GAIT, TWO PERSON ASSIST NEEDED FOR AMBULATION AT THIS TIME
--- NOTE | 2017-03-23 15:49 | NUR ---
PT SITTING UP IN BED WATCHING TV WILL CONT TO MONITOR
--- NOTE | 2017-03-23 15:55 | NUR ---
DISCHARGE PLANNING Spoke with Amanda at [facility] patient accepted. Amanda stated facility currently full and estimated to have bed available early next week. Met with patient at bedside. Provided patient with brochure for [facility]. Patient did not agree nor disagree with discharge plan. Per patient requested provided patient with brochures for [facility], [facility], and [facility]. Patient will review and note will be left for weekend CM to follow up.
[2017-03-23 15:57] VITALS: BP_SYST 163
--- NOTE | 2017-03-23 16:03 | NUR ---
ASSISTED PT TO RESTROOM
[2017-03-23] MEDS: NACL 0.9% 1,000 ML IV SCH (16:13)
--- NOTE | 2017-03-23 17:00 | NUR ---
ASSISTED PT TO BSC
--- NOTE | 2017-03-23 17:33 | NUR ---
ROUNDS PT STABLE..NO CHANGES...SITTING UP IN BED EATING DINNER...WILL CONT TO MONITOR
--- NOTE | 2017-03-23 19:02 | NUR ---
ASSISTED PT TO RESTROOM
[2017-03-23 19:05] VITALS: BP_SYST 117
--- NOTE | 2017-03-23 19:05 | NUR ---
Initial Round Received pt in bed, awake, alert, oriented x1 with episodes of confusion. Pt packed her belongings wanting to go home. Moved patient to RM 121A, closer to station for safety.Talked calmly and gave reassurance to patient. V/S are WNL. IV noted to L f/a no infiltrate and with good blood return. Bed in low position with call light within reach, will cont to monitor.
--- NOTE | 2017-03-23 21:00 | NUR ---
Assisted with bedpan Assisted pt with a bedpan and perform gema care. Left bed in low position, with bed alarm and side rails up x3. Call light within reach, will continue to monitor.
--- NOTE | 2017-03-23 23:05 | NUR ---
Rounds Assisted to reposition in bed. No s/s of any distress noted. Left bed in low position with side rails up x3. Call light in reach, will cont to monitor.
[2017-03-24] VITALS (7 sets, daily range): BP systolic 124–155
--- NOTE | 2017-03-24 03:50 | NUR ---
Assisted to B/R Assisted to B/R and safely back to bed. No sob and no distress noted. Bed in low position with side rails up and alarm on for safety. Call light within reach, will cont to monitor.
[2017-03-24] MEDS: ACETAMINOPHEN 325 MG TABLET PO PRN (04:28)
[2017-03-24] MEDS: COMTAN 200 MG TAB PO SCH ×5 (05:31→21:44)
[2017-03-24] MEDS: CARBIDOPA/LEVODOPA 25/100 MG TABLET PO SCH ×10 (05:31→21:43)
[2017-03-24] MEDS: PIPERACILLIN/TAZO 3.375/DEX-IS 50 ML IV SCH ×3 (05:31→18:05)
[2017-03-24] MEDS: PRAMIPEXOLE DI-HCL 0.25 MG TABLET PO SCH ×5 (05:32→21:42)
--- NOTE | 2017-03-24 06:25 | NUR ---
Partial bed bath Partial bed bath rendered to patient. No s/s of any distress noted. Bed in low position with bed alarm on and side rails up x 3 for safety. Call light within reach, will cont to monitor.
--- NOTE | 2017-03-24 06:54 | NUR ---
Final Round Patient is resting at this time. No s/s of any distress noted. V/S are wnl. All needs met and anticipated by noc nurses. Bed in low position with side rails up x2. Call light within reach, will endorse
--- NOTE | 2017-03-24 07:44 | NUR ---
am notes- in bed awake, confused. denies any pain or discomfort. ivf infusing well. incontinent. changed pt at this time. safety precaution observed. on bed alarm. will monitor.
[2017-03-24] MEDS: RALOXIFENE HCL 60 MG TABLET (EVISTA) PO SCH (08:16)
[2017-03-24] MEDS: FAMOTIDINE 20 MG TABLET PO SCH (08:16)
[2017-03-24] MEDS: ASPIRIN 81 MG TAB.CHEW PO SCH (08:16)
[2017-03-24] MEDS: FERROUS SULFATE 325 MG TABLET.DR PO SCH (08:17)
[2017-03-24] MEDS: METOPROLOL SUCCINATE 25 MG TAB.SR.24H (TOPROL XL) PO SCH (08:17)
[2017-03-24] MEDS: ATORVASTATIN 10 MG TABLET PO SCH (08:17)
[2017-03-24] MEDS: LACTOBACILLUS RHAMNOSUS GG 1 CAP CAPSULE PO SCH ×2 (08:17→21:44)
[2017-03-24] MEDS: FOLIC ACID 1 MG TABLET PO SCH (08:17)
[2017-03-24] MEDS: DOCUSATE SODIUM 100 MG CAPSULE PO SCH ×2 (08:17→21:44)
[2017-03-24] MEDS: MULTIVITAMINS TAB 1 TABLET PO SCH (08:19)
--- NOTE | 2017-03-24 10:03 | NUR ---
notes- ambulate with therapy with walker. denies any pain or disco fort. no distress noted. will monitor.
[2017-03-24] MEDS: NACL 0.9% 1,000 ML IV SCH (10:40)
--- NOTE | 2017-03-24 12:20 | NUR ---
notes- assisted to bedside commode and voided. denies any pain. repositioned for lunch.
--- NOTE | 2017-03-24 14:40 | NUR ---
notes- awake, denies any pain or discomfort. family at bedside
--- NOTE | 2017-03-24 16:03 | NUR ---
DC PLANNING: S/W FAMILY AT BEDSIDE, PT AND FAMILY PREFERS [facility] BUT THERE 'S NO AVAILABLE BED YET, THEIR SECOND CHOICE IS [facility] PT WAS THERE BEFORE. THEY WILL ALSO VISIT [facility] TODAY. CM TO F/U. Addendum: 03/24/17 at 1643 by Maddy Acevedo RN RECEIVED A DC ORDER TO [facility]. CALLED AND FAXED TO [facility] TEL# [phone]; FAX# [phone] S/W JUAN PABLO PAPPAS SPRAY BLENDER, SHE SAID SHE WILL REVIEW FIRST. GAVE TEL# OF [facility] NURSE'S STATION FOR HER TO CALL IF SHE WILL ACCEPT THE PT. PLACE A WILL CALL TO [facility] TEL#[phone]. PACKET AT THE NURSE'S STATION, TEOFILO VAUGHAN RN AWARE.
--- NOTE | 2017-03-24 18:01 | NUR ---
NOTES- JUAN PABLO FROM [facility] CALLED AND STATED THAT PT WAS ACCEPTED AND THERE IS ROOM AVAILABLE AND CAN BE TRANSFER TONIGHT. WILL START PAPERWORK AND WILL ENDORSE.
--- NOTE | 2017-03-24 18:55 | NUR ---
notes- awake in bed, eating dinner. family at bedside. made them aware that pt is accepted to [facility] and will be living tonight. acknowledgement form signed by family. no distress noted. will endorse.
--- NOTE | 2017-03-24 19:30 | NUR ---
Initial PM Note Pt was received lying in bed awake and oriented to her name only. Pt is confused and speech is clear. No acute distress noted. Two family members are visiting at the bedside. IVF of NS is infusing well in LFA at 75ml/hr and no signs of infiltration noted at the IV site. Pt is being transferred to [facility]. Will continue to monitor pt.
--- NOTE | 2017-03-24 19:45 | NUR ---
Report Report was called to ELYSE Walker Javascript Application Developer at [facility].
--- NOTE | 2017-03-24 21:50 | NUR ---
Transfer Pt was transferred to [place] via Ambulance in stable condition. IVF was converted to Saline Lock prior to transfer. Wrist ID was removed and placed in the shredder. Plain ID band with pt's name and was placed on pt's wrist. All pt's belongings were transferred with pt.
== END 2017-03-24 21:50 | DRG 194 ==
LOC: SED 21:03 → STU 23:30 → SMU 03-20 19:34
PROVIDERS: ADMIT Family Medicine; ATTEND Family Medicine
DX: J18.9 Pneumonia, unspecified organism (principal); S22.31XA Fracture of one rib, right side, initial encounter for closed fracture; G20 Parkinson's disease; E78.5 Hyperlipidemia, unspecified; I10 Essential (primary) hypertension; F03.90 Unspecified dementia, unspecified severity, without behavioral disturbance, psychotic disturbance, mood disturbance, and anxiety; E86.0 Dehydration; Z85.3 Personal history of malignant neoplasm of breast; Z79.82 Long term (current) use of aspirin; Z79.899 Other long term (current) drug therapy
CPT/HCPCS: 36415; 71010; 73030; 73060-TC; 80048; 80053; 81003; 82550-TC; 83605; 83880; 84484; 85025; 85610-TC; 85730-TC; 87040-TC; 87081; 87086; 93005; 96365; 96375; 97110-GP; 97116-GP; 97530-GP; 99285; J1885; J2543; J7030; J7060

== ENCOUNTER 2018-08-14 21:37 | Emergency (ER) | payer OTHER, MEDICARE ==
[~2018-08-14] VITALS: Ht 149.9 cm; Wt 54.4 kg
[2018-08-14 21:37] VITALS: BP_SYST 114
[~2018-08-14 21:37] MED LIST changes: +ACET325T53 PO; +ASPI-1155 PO; -ASPI81TA2 PO; +CARB-61 PO; +DOCU-144 PO; +FLUT60LO3 TP; +METO25TA3 PO; -METO25TA6; +NAPR220C15 PO; -SENN1TAB5 PO; -SINEMET PO; -carbidopa-levodopa
[2018-08-14 22:05] VITALS: BP_SYST 114
== END 2018-08-14 22:05 | disposition home or self-care (01) ==
LOC: SED 21:37
DX: T50.904A Poisoning by unspecified drugs, medicaments and biological substances, undetermined, initial encounter (principal); G30.9 Alzheimer's disease, unspecified; I10 Essential (primary) hypertension; Z79.899 Other long term (current) drug therapy
CPT/HCPCS: 99283